=== PATIENT | male | born 1945 | race Caucasian/White ===

== ENCOUNTER 2017-06-25 06:55 | Inpatient (IN) | payer OTHER, BC ==
[2017-06-25] MEDS ORDERED: LR 1,000 ML IV ONE (07:21)
[2017-06-25] MEDS ORDERED: LIDOCAINE 1% 2 ML INJ ID PRN (07:21)
[2017-06-25] MEDS ORDERED: ceFAZolin 2 GM/SWFI 2 GM/20 ML SYR IVP ONE (07:52)
--- NOTE | 2017-06-25 07:53 | PDHPUP ---
History & Physical Update H&P update statement: This history and physical update is based on an assessment of the patient which was completed after admission or registration (within 24 hours), but prior to the surgery/procedure. H&P update: H&P reviewed & patient examined, no change in patient's condition since H&P completed
[2017-06-25] MEDS ORDERED: MIDAZOLAM 2 MG/2 ML VIAL IVP ONE (08:31)
[2017-06-25] MEDS ORDERED: MIDAZOLAM 2 MG/2 ML VIAL ONE (08:35)
--- NOTE | 2017-06-25 08:36 | PDANEPAE ---
ANE History of Present Illness Patient presents for cystoscopy, TURP ANE Past Medical History - Cardiovascular History Hx Hypertension: Yes Hx Arrhythmias: Yes Hx Chest Pain: No Hx Coronary Artery / Peripheral Vascular Disease: No Hx CHF / Valvular Disease: No Hx Palpitations: No Cardiovascular History Comment: PAC, PVC 2015 - Pulmonary History Hx COPD: No Hx Asthma/Reactive Airway Disease: No Hx Recent Upper Respiratory Infection: No Hx Oxygen in Use at Home: No Hx Sleep Apnea: No Sleep Apnea Screening Result - Last Documented: Positive - Neurologic History Hx Cerebrovascular Accident: No Hx Seizures: No Hx Dementia: No - Endocrine History Hx Diabetes: No - Renal History Hx Renal Disorders: Yes Renal History Comment: cystoscopy w bladder bx for microscopic blood multiple times - Liver History Hx Hepatic Disorders: No - Neurological & Psychiatric Hx Hx Neurological and Psychiatric Disorders: No - Cancer History Hx Cancer: Yes - Congenital Disorder History Hx Congenital Disorders: No - GI History Hx Gastrointestinal Disorders: Yes Gastrointestinal History Comment: lactose intolerant - Chronic Pain History Chronic Pain: No - Surgical History Prior Surgeries: bladder bx. lumbar back sx. hernia surgery. ear sx ANE Review of Systems Review of Systems: - Exercise capacity METS (RN): 6 METS ANE Patient History - Allergies Allergies/Adverse Reactions: No Known Allergies Allergy (Verified 06/25/17 07:19) - Home Medications Home medications: home medication list seen and reviewed Home Medications: Cholecalciferol Vit D3 [Vitamin D3 (*)] 1,000 units PO DAILY 09/16/15 [Last Taken 06/24/17 08:00] Losartan Potassium [Cozaar] 100 mg PO DAILY 09/16/15 [Last Taken 06/25/17 05:00] Herbals/Supplements -Info Only 1 ea PO DAILY 06/05/17 [Last Taken 06/24/17 08:00 ] Hydroxyurea [Hydrea 500 mg (*)] 1,000 mg PO DAILY 06/05/17 [Last Taken 06/25/17 05:00] Ipratropium 0.06% Nasal [Atrovent 0.06% Nasal (RX)] 1 sprays EACHNARE TID PRN [Last Taken 06/25/17 06:00] - NPO status NPO Status: no food or drink >8 hours NPO Since - Liquids (Date): 06/24/17 NPO Since - Liquids (Time): 22:00 NPO Since - Solids (Date): 06/24/17 NPO Since - Solids (Time): 20:00 - Anes Hx Anes Hx: no prior problems - Smoking Hx Smoking Status: Never smoked - Family Anes Hx Family Hx Anesthesia Complications: none ANE Labs/Vital Signs - Vital Signs Blood Pressure: 152/78 Heart Rate: 78 Respiratory Rate: 16 O2 Sat (%): 95 Height: 177.8 cm Weight: 61.235 kg ANE Physical Exam - Airway Neck exam: FROM, decreased ROM Mallampati Score: Class 1 Mouth exam: normal dental/mouth exam - Pulmonary Pulmonary: no respiratory distress - Cardiovascular Cardiovascular: pulses symmetric bilaterally - ASA Status ASA Status: II ANE Anesthesia Plan Anesthesia Plan: general endotracheal anesthesia (RBA discussed, pt agrees to proceed)
[2017-06-25] MEDS ORDERED: fentaNYL 100 MCG/2 ML INJ ONE ×4 (08:39→11:53)
[2017-06-25] MEDS ORDERED: SUCCINYLCHOLINE CHLORIDE 200 MG/10 ML SYR IVP ONE (08:39)
[2017-06-25] MEDS ORDERED: LIDOCAINE 2% 5 ML SDV ONE (08:39)
[2017-06-25] MEDS ORDERED: PROPOFOL 200 MG/20 ML VIAL ONE ×2 (08:39→09:07)
[2017-06-25] MEDS ORDERED: DEXAMETHASONE 4 MG/ML VIAL ONE (08:55)
[2017-06-25] MEDS ORDERED: LIDOCAINE 2% JELLY 20 ML (UROJECT) ONE (09:01)
[2017-06-25] MEDS ORDERED: IOPAMIDOL (ISOVUE-300) 150 ML BTL ONE (09:01)
[2017-06-25] MEDS ORDERED: ONDANSETRON 4 MG/2 ML VIAL ONE (10:10)
[2017-06-25] MEDS ORDERED: ACETAMINOPHEN 325 MG TAB PO PRN (10:26)
[2017-06-25] MEDS ORDERED: ZOLPIDEM TARTRATE 5 MG TAB PO PRN (10:26)
[2017-06-25] MEDS ORDERED: ONDANSETRON DISINTEGRATING 4 MG TAB PO PRN (10:26)
--- NOTE | 2017-06-25 10:27 | POSTANESTH ---
Post Anesthetic Evaluation Cardiovascular Status: Similar to Pre-Op Cond Respiratory Status: Similar to Pre-op Cond. Level of Consciousness/Mental Status: Can Participate in Eval Pain Control: Adequate, Prn Tx Ordered Nausea/Vomiting Control: Adequate, Prn Tx Ordered Complications Possibly Related to Anesthesia: None Noted
--- NOTE | 2017-06-25 10:29 | POSTOPPROG ---
Post Op Note Date of Operation: 06/25/17 Surgeon: Terrance Kirk Anesthesia: LMA Pre-op Diagnosis: hematuria Post-op Diagnosis: same Indication: same Procedure: dictated Inf/Abcess present in the surg proc area at time of surgery?: No EBL: Minimal
--- NOTE | 2017-06-25 10:37 | GOP ---
[f rep st] OPERATIVE REPORT DATE OF OPERATION: 06/25/2017 SURGEON: Terrance Kirk MD PREOPERATIVE DIAGNOSIS: Gross hematuria, atypical cytology and abnormal FISH test on urine samples. POSTOPERATIVE DIAGNOSIS: Gross hematuria, atypical cytology and abnormal FISH test on urine samples. PROCEDURE PERFORMED: FINDINGS: DESCRIPTION OF PROCEDURE: After undergoing general anesthesia, and being prepped and draped in noelle l sterile fashion, appropriate time-out. The cystoscope was passed into the bladder and I performed a right retrograde ureteral pyelogram and the ureter was normal. The renal pelvis was normal, but th ere was a persistent filling abnormality that my initial impression was it was just an overlying band between 2 infundibula but I elected to go ahead and do ureteroscopy. So, diagnostic and ureteral acc ess sheath was passed and then I used a flexible scope and was able to visualize each calyx and infun dibulum in the kidney in the renal pelvis and there was no malignancy. Upon removing the ureteral sc ope under direct vision, there was no pathology identified. At that point, the left retrograde urete ral pyelogram was performed and he had normal ureter, normal renal collecting system and calices with no filling defect or abnormalities identified. Then, on the cystoscopy with the procedure filling an d emptying his bladder, he had diffuse inflammation of the bladder, so I took 2 random biopsies of th e bladder areas of the inflamed areas and sent those for pathologic specimen. Then, I placed the TUR instruments into the bladder and,with the button, I cauterized the 2 biopsy sites and there was no p erforation of the bladder. Then, at that point, I did a TUR of the prostate for diagnostic sampling. So, the right lateral lobe, right portion of the posterior lobe, left lateral lobe, left portion of the posterior lobe were resected. He had regrowth with these inflammatory nodular areas noted from p revious GreenLight laser photo vaporization. Then, at that point, visualization of the verumontanum had this frondlike material, so I did a biopsy of the verumontanum, fulgurated that, and, at the end of the procedure, no bleeding sites were identified. Ureteral orifices were clear, normal and bladde r had no suggestion of perforation. I placed a Uro-Jet in the urethra and a 20-Yor[address] catheter passed the bladder with a 30 cc balloon inflated, and urine was clear. He will be admitted for post operative care. I will discuss the findings with his . Of interest is, his bladder with just fi lling and emptying during routine cystoscopy and retrogrades, he had a lot of petechial changes that seemed to be usual compared to what normal is. /[id number]/MODL
[2017-06-25] MEDS ORDERED: LR 500 ML IV PRN (11:03)
[2017-06-25] MEDS ORDERED: OXYCODONE/APAP 5/325 TAB PO PRN (11:03)
[2017-06-25] MEDS ORDERED: NALOXONE HCL 0.4 MG/ML INJ IVP PRN (11:03)
[2017-06-25] MEDS: fentaNYL 100 MCG/2 ML INJ IVP PRN ×2 (11:07→11:57)
[2017-06-25] MEDS ORDERED: OPIUM/BELLADONNA ALKALO SUPP PR ONE (11:40)
[2017-06-25] MEDS: OPIUM/BELLADONNA ALKALO SUPP PR PRN ×2 (11:45→17:08)
[2017-06-25] MEDS ORDERED: HYDROCODONE/APAP 5/325 TAB ONE (12:01)
[2017-06-25] MEDS: HYDROCODONE/APAP 5/325 TAB PO PRN ×2 (12:02→15:38)
[2017-06-25] MEDS: ONDANSETRON 4 MG/2 ML VIAL IVP PRN (13:48)
[2017-06-25] MEDS: POTASSIUM Cl (KCl) 10 MEQ in D5W 1/2 NS 1,000 ML IV SCH ×2 (14:22→21:35)
[2017-06-25] MEDS ORDERED: HYDROmorphONE/DILAUDID 2 MG TAB PO PRN (20:20)
[2017-06-25] MEDS: HYDROmorphone HCL/NS/PF 0.4 MG/2 ML SYR IVP PRN (20:56)
[2017-06-26] MEDS: HYDROmorphone HCL/NS/PF 0.4 MG/2 ML SYR IVP PRN ×2 (00:53→05:58)
[2017-06-26] MEDS: OPIUM/BELLADONNA ALKALO SUPP PR PRN (03:09)
[2017-06-26] MEDS: HYDROCODONE/APAP 5/325 TAB PO PRN ×4 (04:20→22:32)
[2017-06-26] MEDS: POTASSIUM Cl (KCl) 10 MEQ in D5W 1/2 NS 1,000 ML IV SCH ×2 (05:03→10:52)
[2017-06-26] MEDS ORDERED: OXYCODONE/APAP 5/325 TAB PO PRN (11:14)
[2017-06-26] MEDS ORDERED: oxyCODONE IR 5 MG TAB PO PRN (11:15)
[2017-06-26] MEDS ORDERED: IPRATROPIUM 0.06% NASAL SPRAY EACHNARE PRN (11:23)
[2017-06-26] MEDS: CHOLECALCIFEROL VIT D3 1,000 UNITS TAB PO SCH (12:49)
[2017-06-26] MEDS: HYDROXYUREA 500 MG CAP PO SCH (12:49)
[2017-06-26] MEDS: DOCUSATE SODIUM 100 MG CAP PO PRN (12:49)
[2017-06-26] MEDS: LOSARTAN POTASSIUM 50 MG TAB PO SCH (12:50)
--- NOTE | 2017-06-26 12:57 | SOAPPROG ---
SOAP Progress Note Assessment/Plan: Assessment: Naeem hematuria Acute Hematuria Acute doing ok, path pending Plan:consider DC later today, pt improved after removal of ellington 06/26/17 12:56 Subjective: better now Objective: Vital Signs Temp Pulse Resp BP Pulse Ox 36.9 C 71 17 155/69 H 99 06/26/17 07:44 06/26/17 12:40 06/26/17 12:40 06/26/17 12:40 06/26/17 12:40 06/25/17 06/26/17 06/27/17 05:59 05:59 05:59 Intake Total 3332 Output Total 75 700 Balance 3257 -700 Physical Exam - Physical Exam General Appearance: alert Neck: supple Respiratory: No respiratory distress Abdomen: soft Back: No CVA tenderness Extremities: No calf tenderness, No Salena's sign Neuro/Psych: alert, oriented x 3 ICD10 Worksheet Patient Problems: Problems Problem Status Onset Chest pain Acute Naeem hematuria Acute Hematuria Acute
[2017-06-27] MEDS: ONDANSETRON 4 MG/2 ML VIAL IVP PRN ×2 (01:47→18:12)
[2017-06-27] MEDS: HYDROCODONE/APAP 5/325 TAB PO PRN ×5 (01:47→20:55)
[2017-06-27] MEDS: CHOLECALCIFEROL VIT D3 1,000 UNITS TAB PO SCH (08:06)
[2017-06-27] MEDS: LOSARTAN POTASSIUM 50 MG TAB PO SCH (08:06)
[2017-06-27] MEDS: HYDROXYUREA 500 MG CAP PO SCH (08:06)
--- NOTE | 2017-06-27 08:18 | SOAPPROG ---
SOAP Progress Note Assessment/Plan: Assessment: Naeem hematuria Acute POD 2, has some abdominal pain could be GI or ureteral colic from ureteroscopy. bowel program and assess further in AM Hematuria Acute doing ok, path CIS of prostate urethra, discussed with pt and and will need investigate more prior to final rx plan Plan:consider DC later today if bowel fx and pain improved 06/27/17 08:15 Subjective: pain control inadequate Objective: Vital Signs Temp Pulse Resp BP Pulse Ox 36.7 C 89 18 178/78 H 94 06/27/17 07:35 06/27/17 07:35 06/27/17 07:35 06/27/17 08:06 06/27/17 07:35 06/26/17 06/27/17 06/28/17 05:59 05:59 05:59 Intake Total 3332 2785 Output Total 75 3025 Balance 3257 -240 Physical Exam - Physical Exam General Appearance: alert Respiratory: No respiratory distress Abdomen: distended (right colon dilated), guarding Back: CVA tenderness (mild right) Extremities: No calf tenderness, No Salena's sign Neuro/Psych: oriented x 3 ICD10 Worksheet Patient Problems: Problems Problem Status Onset Chest pain Acute Naeem hematuria Acute Hematuria Acute
[2017-06-27] MEDS ORDERED: SENNOSIDES/DOCUSATE SODIUM TAB PO SCH (09:00)
[2017-06-27] MEDS: DOCUSATE SODIUM 100 MG CAP PO PRN (14:32)
--- NOTE | 2017-06-27 16:27 | ASMTCMCOM ---
CM Note CM Note Notes: Pt will have no DC needs. Date Signed: 06/27/2017 04:26 PM Electronically Signed By:Kerry Orellana LCSW
[2017-06-27] MEDS: SENNOSIDES/DOCUSATE SODIUM TAB PO SCH (20:53)
[2017-06-28] MEDS: HYDROCODONE/APAP 5/325 TAB PO PRN ×2 (01:02→08:44)
[2017-06-28] MEDS: ONDANSETRON 4 MG/2 ML VIAL IVP PRN (01:02)
[2017-06-28] MEDS: SENNOSIDES/DOCUSATE SODIUM TAB PO SCH (08:44)
[2017-06-28] MEDS: CHOLECALCIFEROL VIT D3 1,000 UNITS TAB PO SCH (08:44)
[2017-06-28] MEDS: HYDROXYUREA 500 MG CAP PO SCH (08:45)
[2017-06-28] MEDS: LOSARTAN POTASSIUM 50 MG TAB PO SCH (08:45)
--- NOTE | 2017-06-28 11:58 | SOAPPROG ---
SOAP Progress Note Assessment/Plan: Assessment: Naeem hematuria Acute POD 3, has some abdominal pain could be GI or ureteral colic from ureteroscopy. bowel program and assess further in AM Hematuria Acute doing ok, path CIS of prostate urethra, discussed with pt and and will need investigate more prior to final rx plan Plan:consider DC today 06/28/17 12:56 Subjective: doing better, consider home Objective: Vital Signs Temp Pulse Resp BP Pulse Ox 36.9 C 81 15 138/77 H 92 06/28/17 07:57 06/28/17 07:57 06/28/17 07:57 06/28/17 08:45 06/28/17 07:57 06/27/17 06/28/17 06/29/17 05:59 05:59 05:59 Intake Total 2785 450 Output Total 3025 1700 Balance -240 -1250 Physical Exam - Physical Exam General Appearance: alert Respiratory: lungs clear Cardiac/Chest: regular rate, rhythm Abdomen: soft Extremities: No calf tenderness, No Salena's sign Neuro/Psych: alert, oriented x 3 ICD10 Worksheet Patient Problems: Problems Problem Status Onset Chest pain Acute Naeem hematuria Acute Hematuria Acute
[2017-06-28 12:05] VITALS: BP 125/63; PULSE 80; RESP 16; TEMP 97.6; O2SAT 96
--- NOTE | 2017-06-28 13:37 | GDS ---
[f rep st] DISCHARGE SUMMARY ADMISSION DIAGNOSIS: Atypical urothelial cells in urine and gross hematuria. 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 HOSPITAL COURSE: This gentleman was an a.m. admission, had bilateral retrograde ureteral pyelogram. The right side appeared to be abnormal, so ureteroscopy was performed, that showed a normal renal pe lvis and collecting system, ureters were normal, and bladder had some inflamed areas that were biopsi ed and the biopsy revealed no malignancy or dysplasia. 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 Postoperative course: Catheter removed postop day 1. He had problems with mild ileus and bowel dysf unction postoperatively, which demanded prolonged stay. At the present time, he is discharged home. We have outlined the pathology with him and a variety of options, and we will try to come to a concl usion on the final recommendation for therapy after discussion with the physicians on the matter. Mychal ied to answer his questions to the best of my ability, and will have follow up with me in the office in 1 week and undergo a renal ultrasound at that time to confirm the right kidney is draining well. /[id number]/MODL
--- NOTE | 2017-06-28 15:49 | ASDISCHSUM ---
Discharge Information Plan Status:Home with No Needs Medically Cleared to Leave:06/27/2017 Discharge Date:06/28/2017 01:30 PM CM D/C Disposition:Home, Routine, Self-Care ADT D/C Disposition:Home, Routine, Self-Care Projected Discharge Date:06/28/2017 12:00 AM Transportation at D/C:Family Discharge Delay Reason: Follow-Up Date:06/28/2017 12:00 AM Discharge Slot: Final Diagnosis:Bladder mass, Gross hematuria Placement Information Patient Contact Information Contact Name:DAVID Relationship: Address:[address] City:[place] Alternate Phone: State/Zip Code:[place] [address] Email: Financial Information Financial Class: Primary Plan Desc:MEDICARE OUTPATIENT Primary Plan Number:[id number] Secondary Plan Desc:[facility] Secondary Plan Number:[id number] Assessment Information [facility] CM Progress Note CM Note CM Note Notes: Pt will have no DC needs. Date Signed: 06/27/2017 04:26 PM Electronically Signed By:Kerry Orellana LCSW Case Management Discharge Plan Note Case Management Discharge Discharge Order Complete? Answers: Yes Patient to Obtain Answers: via Family Medications Transportation Arranged Answers: Family/Friends Transport will Pick (Date 06/28/2017 12:00 AM & Time) Family Notified Answers: Yes Notes: Family to transport pérez e Discharge Comments Notes: Patient has been discharged with no needs and to f/u with Dr Kirk in 1 week. Date Signed: 06/28/2017 03:49 PM Electronically Signed By:Cayla Vides LCSW Intervention Information
== END 2017-06-28 13:30 | disposition home or self-care (01) | DRG 716 ==
LOC: F3N 06:55 → F1N 07:24 → OBSVTOIN 06-26 19:03
PROVIDERS: ADMIT Specialist; ATTEND Specialist
PROC: 0TJ98ZZ Inspection of Ureter, Via Natural or Artificial Opening Endoscopic (ICD-10-PCS; principal; 2017-06-25 08:30)
PROC: 0TBB8ZX Excision of Bladder, Via Natural or Artificial Opening Endoscopic, Diagnostic (ICD-10-PCS; principal; 2017-06-25 08:30)
PROC: 0VB08ZX Excision of Prostate, Via Natural or Artificial Opening Endoscopic, Diagnostic (ICD-10-PCS; principal; 2017-06-25 08:30)
PROC: BT1F1ZZ Fluoroscopy of Left Kidney, Ureter and Bladder using Low Osmolar Contrast (ICD-10-PCS; principal; 2017-06-25 08:30)
DX: D07.5 Carcinoma in situ of prostate (principal); R31.0 Gross hematuria; N40.1 Benign prostatic hyperplasia with lower urinary tract symptoms; I10 Essential (primary) hypertension
CPT/HCPCS: C1758; C1769; C1894; J0330; J0690; J1100; J1170; J2250; J2405; J2704; J3010; Q9967

== ENCOUNTER → 2018-03-16 | Outpatient (CLI) | payer OTHER, BC | LOC: BHCLAF 13:15 | PROVIDERS: ATTEND Internal Medicine Cardiovascular Disease | DX: R00.2 Palpitations (principal); I10 Essential (primary) hypertension | CPT/HCPCS: 36415-PO; 84481-90; 93005-PO ==

== ENCOUNTER 2018-10-21 05:04 | Observation (INO) | payer OTHER, BC ==
--- NOTE | 2018-10-20 16:33 | GHP ---
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 This is a 73-year-old gentleman who has had previous bladder lesion and abnormal cytology, and prostate biopsies in the past have shown inflammation, but he did have a biopsy of the bladder and prostate in June 2017, and it showed urothelial carcinoma in situ and he underwent BCG treatment. At the present time, he is admitted for repeat TUR of the prostate because of the abnormal endoscopic findings noted in the office. He was seen at the [facility] because of an 8 pounds weight loss and that evaluation been completed. PAST MEDICAL HISTORY: He has had basal cell carcinoma, transitional cell carcinoma, carcinoma in situ noted. He has had BPH with urinary obstruction, elevated PSAs in the past, micro hematuria, nephrolithiasis, neuroma, polycythemia vera. PAST SURGERIES: Acoustic neuroma, back surgery, basal cell carcinoma, TURP, ureteroscopy. MEDICATIONS: Include aspirin, hydroxyurea, Myrbetriq, and Urogesic-Blue. ALLERGIES: No known drug allergies. FAMILY HISTORY: Melanoma, pancreatic cancer, hypertension, diabetes, and colon cancer. SOCIAL HISTORY: Alcohol consumption daily. Nonsmoker. IMMUNIZATIONS: Not up to date. REVIEW OF SYSTEMS: Negative cardiac, respiratory, GI and endocrine. PHYSICAL EXAMINATION: VITAL SIGNS: Stable. CHEST: Clear. HEART: Regular rate and rhythm. ABDOMEN: Normal. No organomegaly, rebound or guarding. LOWER EXTREMITIES: Normal. At the present time he is admitted for the trans resection of the prostate to assess pathologically potential for carcinoma in situ or transitional cell carcinoma. /[id number]/MODL MTDD
[2018-10-21] MEDS ORDERED: ceFAZolin 2 GM/DEXTROSE 100 ML IV ONE (05:31)
[2018-10-21] MEDS ORDERED: LR 1,000 ML IV ONE (05:32)
[2018-10-21] MEDS ORDERED: LIDOCAINE 2% JELLY 20 ML (UROJECT) ONE (06:53)
[2018-10-21] MEDS ORDERED: MIDAZOLAM 2 MG/2 ML VIAL IVP ONE (07:07)
--- NOTE | 2018-10-21 07:07 | PDANEPAE ---
ANE History of Present Illness TURP for prostate hypertrophy ANE Past Medical History - Cardiovascular History Hx Hypertension: Yes Hx Arrhythmias: No Hx Chest Pain: No Hx Coronary Artery / Peripheral Vascular Disease: No Hx CHF / Valvular Disease: No Hx Palpitations: Yes Cardiovascular History Comment: INTERMITTENT PAC'S,PVC'S - Pulmonary History Hx COPD: No Hx Asthma/Reactive Airway Disease: No Hx Recent Upper Respiratory Infection: No Hx Oxygen in Use at Home: No Hx Sleep Apnea: No Sleep Apnea Screening Result - Last Documented: Positive - Neurologic History Hx Cerebrovascular Accident: No Hx Seizures: No Hx Dementia: No - Endocrine History Hx Diabetes: No - Renal History Hx Renal Disorders: Yes Renal History Comment: URETHERAL INSITU CA. PREV STONE - Liver History Hx Hepatic Disorders: No - Neurological & Psychiatric Hx Hx Neurological and Psychiatric Disorders: No - Cancer History Hx Cancer: Yes - Congenital Disorder History Hx Congenital Disorders: No - GI History Hx Gastrointestinal Disorders: Yes Gastrointestinal History Comment: lactose intolerant. HX OF POLYPS - Other Health History Other Health History: POLYCTHEMIA VERA. ACOUSTIC NEUROMA. DUPUYTRENS CONTRACTION RT HAND - Chronic Pain History Chronic Pain: No - Surgical History Prior Surgeries: TURP 06/25/17. bladder bx. lumbar back. hernia surgery. LT ear REMVL CHOLESTEATOMA ANE Review of Systems Review of Systems: - Exercise capacity METS (RN): 6 METS ANE Patient History - Allergies Allergies/Adverse Reactions: No Known Allergies Allergy (Verified 06/25/17 07:19) - Home Medications Home Medications: Cholecalciferol Vit D3 [Vitamin D3 (*)] 1,000 units PO DAILY 09/16/15 [Last Taken 10/14/18] Losartan Potassium [Cozaar] 100 mg PO DAILY 09/16/15 [Last Taken 10/21/18] Herbals/Supplements -Info Only 1 ea PO DAILY 06/05/17 [Last Taken 10/14/18] Hydroxyurea [Hydrea 500 mg (*)] 1,000 mg PO DAILY 06/05/17 [Last Taken 10/21/18] Ipratropium 0.06% Nasal [Atrovent 0.06% Nasal (RX)] 2 sprays EACHNARE DAILY [Last Taken 10/21/18] Aspirin [Aspirin 81mg (*)] 81 mg PO DAILY 10/13/18 [Last Taken 10/14/18] - NPO status NPO Since - Liquids (Date): 10/21/18 NPO Since - Liquids (Time): 04:30 NPO Since - Solids (Date): 10/21/18 NPO Since - Solids (Time): 20:00 - Smoking Hx Smoking Status: Never smoked - Family Anes Hx Family Hx Anesthesia Complications: none ANE Labs/Vital Signs - Vital Signs Blood Pressure: 139/83 Heart Rate: 68 Respiratory Rate: 16 O2 Sat (%): 97 Height: 177.8 cm Weight: 59.421 kg ANE Physical Exam - Airway Neck exam: FROM Mallampati Score: Class 1 Mouth exam: normal dental/mouth exam - Pulmonary Pulmonary: no respiratory distress, no rales or rhonchi - Cardiovascular Cardiovascular: regular rate and rhythym, no murmur, rub, or gallop - ASA Status ASA Status: III ANE Anesthesia Plan Anesthesia Plan: general endotracheal anesthesia Regional Anesthesia: single shot NB Total IV Anesthesia: No
[2018-10-21] MEDS ORDERED: MIDAZOLAM 2 MG/2 ML VIAL ONE (07:14)
[2018-10-21] MEDS ORDERED: ROCURONIUM 100 MG/10 ML VIAL ONE (07:15)
[2018-10-21] MEDS ORDERED: LIDOCAINE 2% 100 MG/5 ML SYR ONE (07:15)
[2018-10-21] MEDS ORDERED: fentaNYL 100 MCG/2 ML INJ ONE (07:15)
[2018-10-21] MEDS ORDERED: DEXAMETHASONE 4 MG/ML VIAL ONE (07:15)
[2018-10-21] MEDS ORDERED: ONDANSETRON 4 MG/2 ML VIAL ONE (07:15)
[2018-10-21] MEDS ORDERED: PROPOFOL 200 MG/20 ML VIAL ONE (07:16)
[2018-10-21] MEDS ORDERED: NALOXONE HCL 0.4 MG/ML INJ IVP PRN (08:24)
[2018-10-21] MEDS ORDERED: LR 500 ML IV PRN (08:24)
[2018-10-21] MEDS ORDERED: HYDROCODONE/APAP 5/325 TAB PO PRN (08:24)
[2018-10-21] MEDS ORDERED: fentaNYL 100 MCG/2 ML INJ IVP PRN (08:24)
[2018-10-21] MEDS ORDERED: MEPERIDINE 25 MG/0.5 ML AMP IVP PRN (08:24)
[2018-10-21] MEDS ORDERED: PHENYLEPHRINE HCL 100 MCG/ML SYR ONE (08:29)
[2018-10-21] MEDS ORDERED: ePHEDrine SULFATE 25 MG/5 ML SYR ONE (08:29)
--- NOTE | 2018-10-21 08:55 | POSTANESTH ---
Post Anesthetic Evaluation Cardiovascular Status: Normal, Stable Respiratory Status: Normal, Stable Level of Consciousness/Mental Status: Can Participate in Eval, Mildly Sleepy, Arousable Pain Control: Adequate, Prn Tx Ordered Nausea/Vomiting Control: Adequate, Prn Tx Ordered Complications Possibly Related to Anesthesia: None Noted
[2018-10-21] MEDS ORDERED: ONDANSETRON 4 MG/2 ML VIAL IVP PRN (09:04)
[2018-10-21] MEDS ORDERED: ACETAMINOPHEN 325 MG TAB PO PRN (09:04)
[2018-10-21] MEDS ORDERED: ZOLPIDEM TARTRATE 5 MG TAB PO PRN (09:04)
[2018-10-21] MEDS ORDERED: ONDANSETRON DISINTEGRATING 4 MG TAB PO PRN (09:04)
--- NOTE | 2018-10-21 09:05 | GOP ---
[f rep st] OPERATIVE REPORT DATE OF OPERATION: 10/21/2018 SURGEON: Terrance Kirk MD ANESTHESIA: General anesthesia. 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 PROCEDURE PERFORMED: Transurethral resection of the prostate FINDINGS: SPECIMENS: Prostate tissue. ESTIMATED BLOOD LOSS: Less than 50 mL. DESCRIPTION OF PROCEDURE: This gentleman underwent general anesthesia, was prepped and draped in a n ormal sterile fashion in the dorsal lithotomy position, and after appropriate time-out and being prep ped and draped in a normal sterile fashion, the cystoscope was passed into bladder under direct visio n. No tumors, stones, or foreign bodies were identified in the bladder and then, at that point, the right part of the prostate was started to be resected from the bladder neck out to the lateral margin of the verumontanum and swept out all the prostate of tissue. A lot of it had a frond-like appearan ce to it and I did know whether that was a benign condition or abnormal pathology. Then at the end, I did take out part of the verumontanum. There were some areas at the very apex of the prostate that did cold cup biopsy on and sent separately as pathology specimen. At the end of the procedure, hemo stasis was noted. Bladder was Ellik'd free of all chips and clots. Visualization revealed no perfor ation of the bladder. Ureteral orifices preserved. External sphincter approximated at the midline s ymmetrically. The verumontanum has been partially resected. He tolerated the procedure. He will be admitted for postop care and I will discuss the findings with his . COMPLICATIONS: None. /[id number]/MODL
--- NOTE | 2018-10-21 09:10 | POSTOPPROG ---
Post Op Note Date of Operation: 10/21/18 (dictated) Surgeon: Terrance Kirk Anesthesiologist: Stevie Anesthesia: LMA Pre-op Diagnosis: prostate CIS Procedure: TURP Inf/Abcess present in the surg proc area at time of surgery?: No EBL: 50-100 Drains: Other (ellington, 60 ml in balloon) Specimen(s): sent
[2018-10-21] MEDS ORDERED: D5W LR 1,000 ML IV SCH (09:15)
[2018-10-21] MEDS ORDERED: CEPACOL LOZENGE PO ONE (09:23)
[2018-10-21] MEDS: OPIUM/BELLADONNA ALKALO SUPP PR PRN ×2 (16:02→21:40)
[2018-10-21] MEDS: HYDROCODONE/APAP 5/325 TAB PO PRN ×2 (18:08→21:43)
[2018-10-21] MEDS: SENNOSIDES 1 TAB PO SCH (20:05)
[2018-10-22] MEDS: HYDROCODONE/APAP 5/325 TAB PO PRN ×2 (01:41→08:13)
[2018-10-22] MEDS: OPIUM/BELLADONNA ALKALO SUPP PR PRN ×2 (01:42→10:35)
[2018-10-22] MEDS: SENNOSIDES 1 TAB PO SCH (08:06)
[2018-10-22] MEDS ORDERED: CHOLECALCIFEROL VIT D3 1,000 UNITS TAB PO SCH (09:00)
[2018-10-22] MEDS ORDERED: HYDROXYUREA 500 MG CAP PO SCH (09:00)
[2018-10-22] MEDS ORDERED: IPRATROPIUM 0.06% NASAL SPRAY EACHNARE SCH (09:00)
[2018-10-22] MEDS ORDERED: ASPIRIN 81 MG CHEWABLE TAB PO SCH (09:00)
[2018-10-22] MEDS ORDERED: LOSARTAN POTASSIUM 50 MG TAB PO SCH (09:00)
[2018-10-22] MEDS ORDERED: Herbals/Supplements -Info Only PO SCH (09:00)
--- NOTE | 2018-10-22 11:44 | SOAPPROG ---
SOAP Progress Note Assessment/Plan: Assessment: Transitional cell bladder cancer (prostatic Urethra) Acute POD 1, clear urine, ellington out, path pending Plan: DC home 10/22/18 11:42 Subjective: bladder spasms, better after ellington out Objective: Vital Signs Temp Pulse Resp BP Pulse Ox 36.5 C 64 16 144/79 H 93 10/22/18 07:15 10/22/18 07:15 10/22/18 07:15 10/22/18 08:05 10/22/18 07:15 10/21/18 10/22/18 10/23/18 05:59 05:59 05:59 Intake Total 2146 Output Total 1655 Balance 491 Physical Exam - Physical Exam General Appearance: alert Neck: supple Respiratory: No respiratory distress Cardiac/Chest: regular rate, rhythm Abdomen: soft Male Genitalia: normal genitalia (cath removed) Back: No CVA tenderness Skin: warm/dry Extremities: No calf tenderness, No Salena's sign Neuro/Psych: oriented x 3 ICD10 Worksheet Patient Problems: Problems Problem Status Onset Transitional cell bladder cancer Acute Chest pain Acute Naeem hematuria Acute Hematuria Acute - ICD10 Problem Qualifiers (1) Transitional cell bladder cancer
[2018-10-22 11:57] VITALS: BP 127/77
--- NOTE | 2018-10-22 11:59 | GDS ---
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 PROCEDURE: Transurethral resection of prostate. HOSPITAL COURSE: This gentleman on the date of admission had the above procedure performed. Cathete r was discontinued postop day 1. Pathology is pending. No complications. He will have followup wit alexi carcamo in 3 weeks. /[id number]/MODL
--- NOTE | 2018-10-22 12:33 | ASDISCHSUM ---
Discharge Information Plan Status:Home with No Needs Medically Cleared to Leave:10/22/2018 Discharge Date:10/22/2018 12:11 PM CM D/C Disposition:Home, Routine, Self-Care ADT D/C Disposition:Home, Routine, Self-Care Projected Discharge Date:10/22/2018 12:00 AM Transportation at D/C:Family Discharge Delay Reason: Follow-Up Date:10/22/2018 12:00 AM Discharge Slot:2 - 12:01 pm - 18:00 pm Final Diagnosis:Transitional cell carcinoma of prostatic urethra Placement Information Patient Contact Information Contact Name:DAVID Relationship: Address:[address] City:[place] Alternate Phone: [facility]/Zip Code:[place] [address] Email: Financial Information Financial Class:Medicare Primary Plan Desc:MEDICARE OUTPATIENT Primary Plan Number:[id number] Secondary Plan Desc:[facility] Secondary Plan Number:[id number] Assessment Information [facility] CM Progress Note CM Note CM Note Notes: Chart Review for Discharge Planning: Patient is a 73 year old male with planned visit to 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 Medical history incluedes: Basal Cell Carcinoma, BPH with urinary obstruction, microhematuria, nephrolithiasis, neuroma, polycythemia vera. Patient discharged home independent and to follow up as recommended. Date Signed: 10/22/2018 12:31 PM Electronically Signed By:Scarlet Cooper Intervention Information Intervention Type:*Incorrect Registration Date of Service:10/21/2018 10:29 AM Patient Type:Inpatient Staff Member:RO Villaseñor Courtney Hours: Discipline: Severity: Comment: Intervention Type:*HOWARD-Signed Date of Service:10/22/2018 11:08 AM Patient Type:Observation Staff Member:Debbi Aguilera Hours: Discipline: Severity: Comment:
== END 2018-10-22 12:11 | disposition home or self-care (01) ==
LOC: INTOOBSV 05:04 → F1N 05:04
PROVIDERS: ADMIT Specialist; ATTEND Specialist
PROC: 0VB08ZZ Excision of Prostate, Via Natural or Artificial Opening Endoscopic (ICD-10-PCS; principal; 2018-10-21 07:15)
DX: C61 Malignant neoplasm of prostate (principal); Z87.442 Personal history of urinary calculi
CPT/HCPCS: 52601; J0690; J1100; J2001; J2250; J2370; J2405; J2704; J3010